=== PATIENT | female | born 1960 ===

== ENCOUNTER 2017-06-04 11:44 | Emergency (ER) | payer OTHER ==
[2017-06-04 11:45] VITALS: BMI 29.2
[2017-06-04 11:52] VITALS: BP 135/88; PULSE 90; RESP 18; TEMP 98; O2SAT 97
--- NOTE | 2017-06-04 12:04 | C.PDOC ---
History Of Present Illness 57yo female, presents to ED with complaints of right groin pain, present for the past 3 days. The pain radiates to her right lower back as well as right lower extremity, and tingling to her right lower extremity as well. She denies any weakness, numbness, injury or trauma, bowel/bladder incontinence, saddle anesthesia, dysuria, hematuria and offers no other medical complaints at this time. Time Seen by Provider: 06/04/17 11:58 Chief Complaint (Nursing): Lower Extremity Problem/Injury History Per: Patient History/Exam Limitations: no limitations Onset/Duration Of Symptoms: Days Current Symptoms Are (Timing): Still Present Past Medical History Reviewed: Historical Data, Nursing Documentation, Vital Signs Vital Signs: Last Vital Signs Temp 98.0 F 06/04/17 11:49 Pulse 90 06/04/17 11:49 Resp 18 06/04/17 11:49 BP 135/88 06/04/17 11:49 Pulse Ox 97 06/04/17 13:53 - Medical History PMH: Diabetes, HTN Denies: Chronic Kidney Disease Surgical History: - [facility] Procedures INFLUENZA VACCINATION (02/03/14) INJECT/INFUSE NEC (01/02/14) NEBULIZER THERAPY (08/22/13) SPINAL TAP (02/03/14) Family History: States: Unknown Family Hx - Social History Hx Tobacco Use: No Hx Alcohol Use: No Hx Substance Use: No - Immunization History Hx Tetanus Toxoid Vaccination: No Hx Influenza Vaccination: No Hx Pneumococcal Vaccination: No Review Of Systems Except As Marked, All Systems Reviewed And Found Negative. Genitourinary: Negative for: Dysuria, Hematuria Musculoskeletal: Positive for: Back Pain, Leg Pain (right lower extremity w/ tingling) Neurological: Negative for: Weakness, Numbness Physical Exam - Physical Exam Appears: Non-toxic, No Acute Distress Skin: Normal Color, Warm, Dry, No Rash Head: Atraumatic, Normacephalic Eye(s): bilateral: Normal Inspection, PERRL, EOMI Oral Mucosa: Moist Neck: Normal ROM, Supple Chest: Symmetrical Cardiovascular: Rhythm Regular Respiratory: Normal Breath Sounds Back: No CVA Tenderness, Paraspinal Tenderness (right sided) Extremity: Normal ROM, Tenderness (tenderness right groin area), No Deformity, No Swelling Neurological/Psych: Oriented x3, Normal Speech, Normal Cognition Gait: Steady ED Course And Treatment O2 Sat by Pulse Oximetry: 97 (RA) Pulse Ox Interpretation: Normal Progress Note: Patient given tylenol, toradol and lidocaine patch for pain relief. Medical Decision Making Medical Decision Making: On re-exam, the patient reports improvement of symptoms. Lungs are CTA, heart is RRR, abdomen is soft, non-tender and tolerating Po well. Ambulatory in the ED with steady gait. Follow up with the medical doctor/clinic within 1-2 days. Return if worsened. Disposition - Disposition Referrals: Nicci Burrell [Staff Provider] - Disposition: HOME/ ROUTINE Disposition Time: 13:49 Condition: GOOD Additional Instructions: Follow up with the medical doctor/clinic within 1-2 days. Return if worsened. Prescriptions: Acetaminophen [Tylenol] 325 mg PO Q6 PRN #30 tab PRN Reason: Pain, Mild (1-3) Cyclobenzaprine [Cyclobenzaprine HCl] 10 mg PO BID #14 tab Lidocaine 5% [Lidoderm] 1 each TP DAILY #10 patch Instructions: [employer] Forms: [employer] (Kazakh), Work Excuse Print Language: MALAY - Clinical Impression Clinical Impression: [facility] - PA / EMT P / Resident Statement MD/DO has reviewed & agrees with the documentation as recorded. - Scribe Statement The provider has reviewed the documentation as recorded by the Scribe (Eryn Contreras) Provider Attestation: All medical record entries made by the Scribe were at my direction and personally dictated by me. I have reviewed the chart and agree that the record accurately reflects my personal performance of the history, physical exam, medical decision making, and the department course for this patient. I have also personally directed, reviewed, and agree with the discharge instructions and disposition.
[2017-06-04] MEDS ORDERED: Lidocaine 5% Patch TD STA (12:24)
[2017-06-04] MEDS ORDERED: Lidocaine 5% Patch TD ONE (13:01)
== END 2017-06-04 14:05 | disposition home or self-care (01) ==
LOC: C.ER 11:44
DX: M54.31 Sciatica, right side (principal)
CPT/HCPCS: 96372; 99284; J1885